=== PATIENT | female | born 1975 | race Caucasian/White ===

== ENCOUNTER 2024-10-20 08:31 | Day surgery (SDC) | payer OTHER ==
[2024-10-17 15:29] VITALS: BMI 28.3
[~2024-10-20 08:31] MED LIST: Pre Op ABX Message 1 EACH MISC MISCELLANE ONE
[2024-10-20] MEDS ORDERED: HYDROmorphone 0.5 MG/0.5 ML SYRINGE IVP PRN (08:42)
[2024-10-20] MEDS: IV FLUID CONTINUATION 1,000 ML IV ONE (09:12)
[2024-10-20] MEDS: LACTATED RINGERS 1,000 ML IV SCH (09:17)
[2024-10-20] MEDS: ONDANSETRON 4 MG/2 ML VIAL IVP ONE (09:17)
[2024-10-20] MEDS: DEXAMETHASONE SOD PHOSPHATE 4 MG/ML 1 ML VIAL IV ONE (09:18)
[2024-10-20] MEDS ORDERED: fentaNYL (PF) 50 MCG/ML 2 ML AMP ONE (09:33)
[2024-10-20] MEDS ORDERED: LIDOCAINE 1% INJ 10MG/ML (20 ML MDV) ONE (09:33)
[2024-10-20] MEDS ORDERED: MIDAZOLAM 2 MG/2 ML VIAL ONE (09:33)
[2024-10-20] MEDS ORDERED: KETOROLAC 15 MG/ML 1 ML VIAL ONE (09:33)
[2024-10-20] MEDS ORDERED: PROPOFOL 10 MG/ML 20 ML VIAL IV ONE (09:33)
--- NOTE | 2024-10-20 10:14 | P.OP ---
Date of Procedure: 10/20/24 Preoperative Diagnosis: Heavy menstrual bleeding, uterine fibroids Postoperative Diagnosis: Same Procedure(s) Performed: Hysteroscopy, dilation and curettage, endometrial ablation with NovaSure Anesthesia: MAC Surgeon: Bere Germain Estimated Blood Loss (ml): 5 Urine output (ml): 25 Pathology: other (Endometrial curettings) Condition: stable Disposition: PACU Indications for Procedure: Heavy menstrual bleeding Operative Findings: Proliferative endometrium with polyps Description of Procedure: Patient was taken back to the operating suite where general anesthesia was obtained without difficulty by the anesthesia department. She was prepped and draped in the normal sterile fashion in the dorsolithotomy position. A right upper catheter was used to drain the bladder of clear yellow urine. A weighted speculum was placed in the posterior vaginal vault the anterior lip of the cervix was visualized and grasped with a single-tooth tenaculum. The endocervical canal was then serially dilated. Hysteroscope was placed through the cervix toward the endometrial cavity and intact cavity was appreciated, proliferative with polyps. Hysteroscope was removed and a sharp curettage was performed. Moderate amount of curettings was obtained on curettage. NovaSure was then opened and set to the appropriate measurements for the patient's uterus. Total length of 9.5 - cervix 5.5 width of 3 after cavity assessment was passed cycle was allowed to complete for a total time of 1 minute and 43 seconds at a power of 91. After the cycle was complete the NovaSure was removed without difficulty the single-tooth tenaculum was taken off of the anterior lip of the cervix a small amount of bleeding was noted on the tenaculum site therefore silver nitrate was applied to obtain hemostasis. On inspection hemostasis was noted and all instruments were removed from the patient's vaginal vault. All counts to be correct x 2. Patient was taken the recovery room awake in stable condition.
[2024-10-20 10:19] VITALS: TEMP 96.8
[2024-10-20 10:27] VITALS: RESP 16
[2024-10-20 11:19] VITALS: BP 124/82; PULSE 93
== END 2024-10-20 11:27 | disposition home or self-care (01) ==
LOC: OR 08:31
PROVIDERS: ATTEND Obstetrics & Gynecology Obstetrics
DX: N84.0 Polyp of corpus uteri (principal); D25.9 Leiomyoma of uterus, unspecified; N83.291 Other ovarian cyst, right side; I10 Essential (primary) hypertension; F31.9 Bipolar disorder, unspecified; Z79.899 Other long term (current) drug therapy; Z85.3 Personal history of malignant neoplasm of breast
CPT/HCPCS: 58563; 81025; J2250; J1100; J2405; J2003; J3010; J1885; J2704; 88305